=== PATIENT | female | born 1955 | race Caucasian/White ===

== ENCOUNTER 2018-05-19 10:28 | Outpatient (CLI) | payer OTHER ==
--- NOTE | 2018-05-19 13:26 | CT ---
CT PULMONARY LUNG SCAN: Date: 05/19/18 HISTORY: 62-year-old female with nicotine dependency for low dose screening. COMPARISON: No prior examinations available. FINDINGS: Postop sternotomy. Aneurysmal dilatation of the descending thoracic aorta up to 4.1 cm just below the level of the tracheal bifurcation as well as at the level of the hemidiaphragms. There is some linea r scarring in the right upper lobe and right middle lobe, and minimal linear scarring in the left low er lobe and lingula. There is a probable 0.3 cm diameter subpleural nodule in the right costophrenic angle posteriorly. IMPRESSION: Lung-RADS Category 2 - Benign appearance. 1 year follow-up low dose CT is suggested. POS: MANDY
== END 2018-05-19 10:29 | disposition home or self-care (01) ==
LOC: CT 10:28
PROVIDERS: ATTEND Family Medicine
DX: F17.210 Nicotine dependence, cigarettes, uncomplicated (principal)
CPT/HCPCS: G0297

== ENCOUNTER 2019-05-19 13:03 | Outpatient (CLI) | payer OTHER | END 2019-05-19 13:04 | disposition home or self-care (01) | LOC: DTY/OP 13:03 | PROVIDERS: ATTEND Surgery | DX: E66.01 Morbid (severe) obesity due to excess calories (principal) | CPT/HCPCS: 97802 ==

== ENCOUNTER 2019-07-06 15:13 | Outpatient (CLI) | payer OTHER ==
--- NOTE | 2019-07-06 16:03 | CT ---
CT CHEST WITHOUT CONTRAST: 07/06/19 PROVIDED CLINICAL HISTORY: Nicotine dependence, low dose screening. FINDINGS: Comparison 05/19/18. The heart, pericardium and great vessels are suboptimally evaluated in the absence of IV contrast mat erial. Descending thoracic aortic dilatation is redemonstrated, increased in caliber and now measurin g at least 4.6 cm in greatest transverse dimension. Vascular calcification including coronary calcium is demonstrated. Median sternotomy change are again seen. No evidence for thoracic lymph node enlargement with limitations due to lack of IV contrast. The air way appears patent and of normal caliber. The lungs are free of significant opacity. The previously described right lower lobe pulmonary nodule is not apparent on the current examination. No pleural fluid, pleural thickening, or pneumothorax apparent. The osseous structures demonstrate no concerning lytic or blastic lesions. IMPRESSION: 1. Lung RADS category 1 - negative. Continue annual screening. 2. Descending thoracic aortic aneurysm is redemonstrated, appearing larger than on prior. Consid er dedicated CT angiogram chest. Code T POS: TPC
== END 2019-07-06 15:14 | disposition home or self-care (01) ==
LOC: BICCT 15:13
PROVIDERS: ATTEND Family Medicine
DX: Z12.2 Encounter for screening for malignant neoplasm of respiratory organs (principal); R91.1 Solitary pulmonary nodule; I71.2 Thoracic aortic aneurysm, without rupture; F17.210 Nicotine dependence, cigarettes, uncomplicated
CPT/HCPCS: G0297

== ENCOUNTER 2020-10-17 14:12 | Outpatient (CLI) | payer MEDICARE, BC | END 2020-10-17 14:13 | disposition home or self-care (01) | LOC: BICCT 14:12 | PROVIDERS: ATTEND Family Medicine | DX: Z12.2 Encounter for screening for malignant neoplasm of respiratory organs (principal); Z87.891 Personal history of nicotine dependence; R91.1 Solitary pulmonary nodule | CPT/HCPCS: 71271 ==

== ENCOUNTER 2021-10-23 07:51 | Outpatient (CLI) | payer MEDICARE, BC ==
[2021-10-23] MEDS ORDERED: Iopamidol 370 76% 100 ML VIAL ONE (08:00)
== END 2021-10-23 07:52 | disposition home or self-care (01) ==
LOC: CT 07:51
PROVIDERS: ATTEND Thoracic Surgery (Cardiothoracic Vascular Surgery)
DX: I71.2 Thoracic aortic aneurysm, without rupture (principal)
CPT/HCPCS: 71271; 71275; 74174; 82565; Q9967

== ENCOUNTER 2023-03-06 07:51 | Outpatient (CLI) | payer MEDICARE, BC | END 2023-03-06 07:52 | disposition home or self-care (01) | LOC: BICMRI 07:51 | PROVIDERS: ATTEND Family Medicine | DX: M24.812 Other specific joint derangements of left shoulder, not elsewhere classified (principal); M75.122 Complete rotator cuff tear or rupture of left shoulder, not specified as traumatic; M25.412 Effusion, left shoulder; M19.012 Primary osteoarthritis, left shoulder ==

== ENCOUNTER 2023-11-11 09:11 | Outpatient (CLI) | payer MEDICARE, BC ==
[2023-11-11] MEDS ORDERED: Iopamidol 370 76% 100 ML VIAL ONE (15:11)
== END 2023-11-11 09:12 | disposition home or self-care (01) ==
LOC: CT 09:11
PROVIDERS: ATTEND Student in an Organized Health Care Education/Training Program
DX: I71.20 Thoracic aortic aneurysm, without rupture, unspecified (principal); I71.30 Abdominal aortic aneurysm, ruptured, unspecified
CPT/HCPCS: 71275; 74175; 82565; Q9967